=== PATIENT | female | born 1940 | race Caucasian/White ===

== ENCOUNTER 2016-05-12 23:19 | Emergency (ER) | payer OTHER, BC ==
[~2016-05-12] VITALS: Ht 157.5 cm; Wt 62.1 kg
[~2016-05-12 23:19] MED LIST: ALTACE10 MG PO; Aspirin E.C. PO; Cipro PO; JANUMET 50/51 TABLET PO; LIPITOR40 MG PO; Lipitor PO; PREVACID30 MG PO; TOPROL XL100 MG PO; XANAX0.25 MG PO
[2016-05-13 00:21] LABS: CHLORIDE 100 mEq/L (99-109); POTASSIUM 3.2 mEq/L (3.7-5.4); SODIUM 144 mEq/L (136-147)
[2016-05-13 00:23] LABS: GLUCOSE 209 mg/dL (70-99)
[2016-05-13 00:24] LABS: ANION GAP 18 MEQ/L (2-14)
[2016-05-13 00:27] LABS: GFR ESTIMATE (CALCULATED) 39 mL/min/
[2016-05-13 00:28] LABS: UREA NITROGEN (BUN) 22 mg/dL (9-23)
[2016-05-13 00:35] LABS: EOSINOPHIL (%) 0.07 % (0-5); HEMATOCRIT 36.1 % (36.0-46.0); MCH 28.5 PG (29.0-34.0); MCHC 34.1 G/DL (30.0-36.0); MCV 83.6 FL (83-99); MONOCYTE (%) 0.76 % (3-12); NEUTROPHIL (%) 8.02 % (45-76); PLATELET COUNT 221 K/uL (156-360); RBC DIS.WIDTH-CV 13.1 % (11.8-14.6); RED BLOOD COUNT 4.32 M/uL (3.80-5.20)
[2016-05-13 00:36] LABS: EOSINOPHIL COUNT 0.1 K/uL (0-0.3); IMMATURE GRANULOCYTE (%) 0.1 % (0.0-0.7); IMMATURE GRANULOCYTE COUNT 0.1 K/uL; MONOCYTE COUNT 0.8 K/uL (0-0.8)
[2016-05-13 01:27] VITALS: BP 118/55
== END 2016-05-13 01:32 | disposition home or self-care (01) ==
LOC: EME → EDBD 23:19 → EME 23:19
PROVIDERS: Personal Emergency Response Attendant
DX: R06.4 Hyperventilation (principal); F41.9 Anxiety disorder, unspecified; E11.9 Type 2 diabetes mellitus without complications; E78.5 Hyperlipidemia, unspecified; I10 Essential (primary) hypertension; I25.2 Old myocardial infarction; K21.9 Gastro-esophageal reflux disease without esophagitis; Z86.73 Personal history of transient ischemic attack (TIA), and cerebral infarction without residual deficits; Z79.82 Long term (current) use of aspirin
CPT/HCPCS: 71010; 80048; 85025; 93005; 99281; 99285; J1200; J2060; J7644